=== PATIENT | male | born 1970 | race Caucasian/White ===

== ENCOUNTER 2017-01-10 23:30 | Emergency (ER) | payer OTHER ==
[~2017-01-10] VITALS: Ht 182.9 cm; Wt 63.5 kg
[2017-01-10 23:38] VITALS: BP 115/77
[2017-01-11] MEDS ORDERED: LIDOCAINE /MPF 1% VIAL 5 ML VIAL ONE (00:19)
== END 2017-01-11 01:10 ==
LOC: ER 23:32
DX: S61.412A Laceration without foreign body of left hand, initial encounter (principal); W25.XXXA Contact with sharp glass, initial encounter; Y93.89 Activity, other specified; Y92.89 Other specified places as the place of occurrence of the external cause; Y99.9 Unspecified external cause status
CPT/HCPCS: 12002; 73130; 99284; A4606; A6402; J3490; Z7610